=== PATIENT | female | born 1980 | race Two or more races ===

== ENCOUNTER 2017-02-26 19:33 | Emergency (ER) | payer MEDICAID, OTHER ==
[~2017-02-26] VITALS: Ht 160 cm; Wt 55.8 kg
[~2017-02-26 19:33] MED LIST: ALPR0.255; ALPR1TAB7; ZOLP5TAB7
[2017-02-26 19:38] VITALS: BP 123/64
[2017-02-26 20:37] LABS: APPEARANCE,URINE Clear (CLEAR); BILIRUBIN,URINE Negative (NEGATIVE); BLOOD, URINE Negative Ery/uL (NEGATIVE); COLOR,URINE Yellow (YELLOW); KETONES,URINE Negative (NEGATIVE); LEUKOCYTE ESTERASE ,URINE Moderate (NEGATIVE); NITRITE, URINE Negative (NEGATIVE); PH,URINE 5.5 (5.0-8.0); PROTEIN,URINE Negative (NEGATIVE); UGLUCOSE Negative (NEGATIVE); UROBILINOGEN,URINE 0.2 EU/dL (0.2)
[2017-02-26 20:42] LABS: BACTERIA,URINE Few /HPF (None Seen); RBC,URINE 0-2 /HPF (0-2); SQUAMOUS EPITHELIAL CELL,UR Moderate /HPF (None Seen)
--- NOTE | 2017-02-26 20:45 | NUR ---
John Gomes at bedside to do pelvic examination of patient.
[2017-02-26] MEDS ORDERED: CEFTRIAXONE 500 MG VIAL ONE (20:51)
[2017-02-26] MEDS ORDERED: LIDOCAINE /MPF 1% VIAL 5 ML VIAL ONE (20:51)
[2017-02-26] MEDS ORDERED: AZITHROMYCIN 250 MG TABLET ONE (20:52)
[2017-02-26] MEDS ORDERED: AZITHROMYCIN 250 MG TABLET PO ONE (21:00)
[2017-02-26] MEDS ORDERED: CEFTRIAXONE 500 MG VIAL IM ONE (21:00)
--- NOTE | 2017-02-26 21:06 | NUR ---
medicated patient as ordered by John Gomes.
== END 2017-02-26 22:12 | disposition home or self-care (01) ==
LOC: ER 19:33
DX: B37.3 Candidiasis of vulva and vagina (principal); N39.0 Urinary tract infection, site not specified; R82.99 Other abnormal findings in urine; F41.9 Anxiety disorder, unspecified; F32.9 Major depressive disorder, single episode, unspecified
CPT/HCPCS: 36415; 81001; 84703; 87086; 87210; 87491; 87591; 96372; 99284; A4606; J0696; J3490; Z7610; 81000-TC